=== PATIENT | female | born 1985 | race American Indian/Alaskan Native ===

== ENCOUNTER 2017-04-29 19:14 | Emergency (ER) | payer SELFPAY ==
[2017-04-29 19:22] VITALS: BP 126/82
--- NOTE | 2017-04-29 19:44 | EDM.PDOC ---
ED HPI GENERAL MEDICAL PROBLEM - General Chief Complaint: ENT Problem Stated Complaint: BOTH EARS HURT AND SORE THROAT, [id number] Time Seen by Provider: 04/29/17 19:33 Source of Information: Reports: Patient History Limitations: Reports: No Limitations - History of Present Illness INITIAL COMMENTS - FREE TEXT/NARRATIVE: C/O severe sore throat for past 4 days, no known fever, also bilateral ear pain left worse than right, No sinus pressure. Occasional cough. Has tried Dayquil and nyquil without improvement. Throat Pain Score (Numeric/FACES): 10 - Related Data Allergies Allergy/AdvReac Type Severity Reaction Status Date / Time No Known Allergies Allergy Verified 04/29/17 19:24 Home Meds: Home Meds Multivit-Min/Iron Fum/Folic AC [Uywfi-Gzufgga-Hzjtajil Tablet] 1 tab PO DAILY [History] Past Medical History - Past Health History Medical/Surgical History: Denies Medical/Surgical History [employer] History: Reports: Psychiatric History: Reports: Anxiety, Depression Social & Family History - Family History Family Medical History: Noncontributory - Tobacco Use Smoking Status *Q: Current Every Day Smoker Years of Tobacco use: 10 Packs/Tins Daily: 0.5 Second Hand Smoke Exposure: Yes - Caffeine Use Caffeine Use: Reports: Coffee, Soda - Alcohol Use Days Per Week of Alcohol Use: 2 Number of Drinks Per Day: 8 Total Drinks Per Week: 16 - Recreational Drug Use Recreational Drug Use: Yes Drug Use in Last 12 Months: Yes Recreational Drug Type: Reports: Marijuana/Hashish, Methamphetamine Recreational Drug Use Frequency: Not Used In Over 2 Months ED ROS ENT - Review of Systems Review Of Systems: ROS reveals no pertinent complaints other than HPI. ED EXAM, ENT - Physical Exam Exam: See Below Exam Limited By: No Limitations General Appearance: Alert, No Apparent Distress Eye Exam: Bilateral Eye: EOMI Ears: Normal External Exam, TM Erythema (left), TM Fluid (bilateral) Nose: Normal Inspection Mouth/Throat: Pharyngeal Erythema, Tonsillar Erythema, Tonsillar Swelling. No: Tonsillar Exudates Neck: Lymphadenopathy (L), Lymphadenopathy (R) Respiratory/Chest: No Respiratory Distress Cardiovascular: Normal Peripheral Pulses, Regular Rate, Rhythm Neurological: Alert, Oriented Skin: Warm, Dry Course - Vital Signs Last Recorded V/S: Last Vital Signs Temp 97.7 F 04/29/17 19:21 Pulse 105 H 04/29/17 19:21 Resp 20 04/29/17 19:21 BP 126/82 04/29/17 19:21 Pulse Ox 97 04/29/17 19:21 - Orders/Labs/Meds Orders: Active Orders 24 hr Category Date Time Status STREP SCRN A RAPID W CULT CONF [RM] Stat Lab 04/29/17 19:32 Ordered Departure - Departure Time of Disposition: 19:48 Disposition: Home, Self-Care 01 Condition: Fair Clinical Impression: Strep pharyngitis Otitis media Qualifiers: Otitis media type: serous Chronicity: unspecified Laterality: left Qualified Code(s): H65.92 - Unspecified nonsuppurative otitis media, left ear - Discharge Information Instructions: Strep Throat, [id number] Forms: ED Department Discharge Additional Instructions: alternate tylenol and ibuprofen every 4-6 hours for pain /fever salt water gargles increase fluid intake amoxicillin 500mg one three times daily for one week follow up as needed - My Orders Last 24 Hours: My Active Orders 04/29/17 19:32 STREP SCRN A RAPID W CULT CONF [RM] Stat - Assessment/Plan Last 24 Hours: My Active Orders 04/29/17 19:32 STREP SCRN A RAPID W CULT CONF [RM] Stat
[2017-04-29] MEDS ORDERED: Amoxicillin 500 MG Cap ONE (19:49)
[2017-04-29] MEDS ORDERED: Amoxicillin 500 MG Cap PO ONE (19:49)
== END 2017-04-29 19:53 | disposition home or self-care (01) ==
LOC: DL.ED 19:14
DX: J02.0 Streptococcal pharyngitis (principal); H65.92 Unspecified nonsuppurative otitis media, left ear; F17.210 Nicotine dependence, cigarettes, uncomplicated
CPT/HCPCS: 87430; 99283; A9270

== ENCOUNTER 2019-10-29 20:05 | Emergency (ER) | payer MEDICAID, OTHER ==
[2019-10-29 20:33] VITALS: BP 114/73; PULSE 88
[2019-10-29 21:19] LABS: ANION GAP 14.5; CHLORIDE,CL 101 mmol/L (101-111); SODIUM,NA 134 mmol/L (135-145)
== END 2019-10-29 21:45 | disposition left against medical advice (07) ==
LOC: DL.ED 20:05
DX: Z53.21 Procedure and treatment not carried out due to patient leaving prior to being seen by health care provider (principal)
CPT/HCPCS: 36415; 76815; 80053; 80305-QW; 81001; 82150; 83690; 84702; 84703; 85025; 85610; 87086; 87088; 87186